=== PATIENT | male | born 1995 | race American Indian/Alaskan Native ===

== ENCOUNTER 2017-03-31 03:05 | Emergency (ER) | payer MEDICAID ==
[2017-03-31] MEDS ORDERED: Oxymetazoline 0.05% Nasal Spray (30 ml) NS STA (03:38)
--- NOTE | 2017-03-31 03:39 | C.PDOC ---
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 Pt reports, fell down on face, noted profuse nasal bleeding. Pt also c/o Right sided chest wall pain. Otherwise , pt denies LOC, syncope, severe headache, visual changes, focal deficits, CP, SOB, dyspnea, abd. pain, N/V, UTI sx, saddle anesthesia, incontinence, denies deformity to B/L UEs and LEs. Ambulate to ED. (Teresa Anderson) - HPI History Per: Patient Onset/Duration Of Symptoms: Sudden Onset <Teresa Anderson - Last Filed: 03/31/17 06:39> <Blaire Chi - Last Filed: 04/01/17 14:23> - HPI Time Seen by Provider: 03/31/17 03:19 Chief Complaint (Nursing): Trauma Past Medical History Reviewed: Historical Data, Nursing Documentation, Vital Signs - Medical History PMH: No Chronic Diseases Surgical History: No Surg Hx Family History: States: No Known Family Hx - Social History Hx Alcohol Use: No Hx Substance Use: No - Immunization History Hx Tetanus Toxoid Vaccination: Yes Hx Influenza Vaccination: Yes Hx Pneumococcal Vaccination: No <Teresa Anderson - Last Filed: 03/31/17 06:39> Review Of Systems Except As Marked, All Systems Reviewed And Found Negative. Eyes: Negative for: Vision Change ENT: Positive for: Nose Discharge, Nose Congestion, Mouth Swelling. Negative for: Ear Discharge Cardiovascular: Negative for: Chest Pain, Edema, Light Headedness Respiratory: Negative for: Cough, Shortness of Breath, Wheezing Gastrointestinal: Negative for: Nausea, Vomiting, Abdominal Pain Musculoskeletal: Negative for: Neck Pain, Back Pain Skin: Positive for: Lesions Neurological: Negative for: Weakness, Numbness, Altered Mental Status, Headache , Dizziness <Teresa Anderson - Last Filed: 03/31/17 06:39> Physical Exam - Physical Exam Appears: Well, No Acute Distress Skin: Normal Color, Warm, Dry Head: Normacephalic, No Swelling, No Laceration Eye(s): bilateral: Normal Inspection, PERRL, EOMI Ear(s): Bilateral: Normal Nose: No Flaring, Epistaxis (B/L trace of bleeding noted. No active epistaxis.) , Deformity (nasal bridge), Tenderness, No Septal Hematoma Oral Mucosa: Moist, No Drooling, No Trismus Tongue: Normal Appearing Lips: Laceration (Right upper inner lip small puncture wound with mild edema.) Teeth: Normal Dentition Throat: Normal, No Erythema, No Exudate, No Drooling Neck: Normal ROM, No Midline Cervical Tenderness, No Paracervical Tenderness, No Step Off Deformity, Supple, Other (mild Rigt sided lateral tenderness. NO midline tenderness,n o skin changes.) Chest: Symmetrical, No Deformity, Tenderness (Right lateral ribcage overlying 7- 10 intercostal spaces. NO palpable deformity.), No Ecchymosis, No Subcutaneous Emphysema Cardiovascular: Rhythm Regular Respiratory: No Decreased Breath Sounds, No Accessory Muscle Use, No Stridor, No Wheezing Gastrointestinal/Abdominal: Soft, No Tenderness, No Distention, No Guarding Back: No Vertebral Tenderness Extremity: Normal ROM, No Pedal Edema, No Deformity Neurological/Psych: Oriented x3, Normal Speech, Normal Motor, Normal Sensation, Normal Reflexes <Teresa Anderson - Last Filed: 03/31/17 06:39> ED Course And Treatment O2 Sat by Pulse Oximetry: 97 Pulse Ox Interpretation: Normal - Other Rad Ribs, righ X-Ray: Interpreted by Me, Viewed By Me Interpretation: (+)scoliosis, no fx C-spine X-Ray: Interpreted by Me, Viewed By Me Interpretation: no acute fx or sublux - CT Scan/US CT maxface Other Rad Studies (CT/US): Radiology Report Reviewed CT/US Interpretation: EXAM: CT Maxillofacial Without Intravenous Contrast. CLINICAL HISTORY: 21 years old, male; Injury or trauma; Fall; Initial encounter ; Blunt trauma (contusions or hematomas);. Cheek bone and forehead and nose and orbit/periorbital and maxilla and lip/oral cavity; Bilateral;. Upper. TECHNIQUE: Axial computed tomography images of the face without intravenous contrast. This CT exam was. performed using one or more of the following dose reduction techniques: automated exposure. control, adjustment of the mA and/or kV according to patient size, and/or use of iterative. reconstruction technique. Coronal and sagittal reformatted images were created and reviewed. COMPARISON: No relevant prior studies available. FINDINGS: Bones/joints: There is slightly displaced nasal fractures. No other acute facial fractures identified. Soft tissues: Unremarkable. Orbits: Unremarkable. Sinuses: There is mucosal thickening of scattered ethmoid air cells bilaterally. Mild mucosal. thickening of the right maxillary sinus. No air-fluid levels. IMPRESSION: 1. There is slightly displaced nasal fractures. 2. No other acute facial fractures identified. Thank you for allowing us to participate in the care of your patient. Dictated and Authenticated by: Boogie Schwab MD. 03/31/2017 6:06 AM Eastern Time ([place] & [place]) <Teresa Anderson - Last Filed: 03/31/17 06:39> Progress Note: Accession No. : [id number]. Patient Name / ID : CORY HOU / [id number]. Exam Date : 03/31/2017 03:37:48 ( Approved ). Study Comment : Sex / Age : M / 21Y. Creator : Ezequiel Colorado MD. Dictator : Ezequiel Colorado MD. Residential Framing Carpenter : Auto Claims Adjuster : Ezequiel Colorado MD. Approver2 : Report Date : 08/2017 09:51:45. My Comment : . Cervical spine three views. History: Injury. Comparison: None available. Findings: Reversal of the normal cervical lordosis. Minimal inferior endplate concavities of the C4 and C5 vertebral bodies. No prevertebral soft tissue swelling. Dens is grossly preserved. At the superior aspect of what appears to be the C7 or T1 left transverse process, there is a small ossific density which may represent a small avulsion injury versus ossification center. Clinical correlation. Mild uncovertebral joint and facet sclerosis. Impression: 1. At the superior aspect of what appears to be the C7 or T1 left transverse process, there is a small ossific density which may represent a small avulsion injury versus ossification center. Clinical correlation. 2. Reversal of the normal cervical lordosis. Minimal inferior endplate concavities of the C4 and C5 vertebral bodies. 3. Mild uncovertebral joint and facet sclerosis. 4. If pain persists, consider MRI. Additional findings as above. Report Date : 03/31/2017 09:46: 37. My Comment : . Chest and right ribs three views. History: Injury. Comparison: None available. Findings: Moderate dextroscoliotic curvature of the mid to lower thoracic spine. Mild venous congestion. No evidence of pneumothorax. Heart size within normal limits. No evidence acute displaced rib fracture. Minimal productive change at the end of the distal right clavicle. Clinical correlation. Impression: Negative acute. If pain persists , consider chest CT. Radiology reviewed. Pt called. Pt notes that he is still sore. Notes that the light bothers him but in the dark he feels better. No headache. No Loc. NO n/v. No change in sensation. No SOB. Pt notes his neck hurts " a little". "I slept on my back last night". Discussed radiology reading. Instructed return to ER if symtpoms persist or worsen. Otherwise outpt follow up in 2-3 days. Pt reiterates understanding. <Blaire Chi - Last Filed: 04/01/17 14:23> Disposition Counseled Patient/Family Regarding: Diagnosis, Need For Followup, Rx Given - Disposition Disposition Time: 06:10 <Teresa Anderson - Last Filed: 03/31/17 06:39> <Blaire Chi - Last Filed: 04/01/17 14:23> - Disposition Referrals: Porfirio Patterson MD [Staff Provider] - Disposition: HOME/ ROUTINE Condition: STABLE Additional Instructions: ICE TO NOSE AREA DO NOT BLOW NASTRIL FOR 1 WEEK AFRIN SINUS TWICE DAILY FOR 3 DAYS NEED FOR NASAL CONGESTION LIGHT DUTY, AVOID PHYSICAL ACTIVITY FOR 1 WEEK FOLLOW UP WITH ENT IN 2-3 DAYS FOR RE-EVALUATION. RETURN TO ED IF ANY WORSENING OR NEW CHANGES. Instructions: Nasal Fracture (ED), Head Injury (ED), Cervical Sprain (ED), Chest Wall Pain (ED), Facial Contusion (ED) - Clinical Impression Clinical Impression: Head injury, Nasal fracture, Chest wall contusion, Cervical strain Critical Care Time
[2017-03-31 07:08] VITALS: BP 118/71; PULSE 75; RESP 18; TEMP 98.5; O2SAT 98
--- NOTE | 2017-03-31 08:04 | CT ---
CT maxillofacial History: Injury. Comparison: None available. Technique: Axial computed tomographic images of the face were performed without intravenous contrast. Subsequently, sagittal and coronal reformatted images were obtained. This CT exam was performed using one or more of the following dose reduction techniques: Automated exposure control, adjustment of the mA and/or kV according to patient size, and/or use of iterative reconstruction technique. Findings: Slightly displaced nasal bone fractures. No other acute facial fractures identified. Visualized soft tissues are preserved. Visualized orbits are preserved. Mucosal thickening of the ethmoid air cells bilaterally. Mild mucosal thickening of the bilateral maxillary sinuses. Mild mucosal thickening of the sphenoid sinus. Prominent thickening of the middle and inferior nasal turbinates. Nasal septal deviation. Impression: Slightly displaced nasal bone fractures. Additional findings as above. These findings were preliminarily reported at 6:06 a.m. on 03/31/[address] Boogie Schwab from [facility].
--- NOTE | 2017-03-31 09:48 | RAD ---
Chest and right ribs three views History: Injury. Comparison: None available. Findings: Moderate dextroscoliotic curvature of the mid to lower thoracic spine. Mild venous congestion. No evidence of pneumothorax. Heart size within normal limits. No evidence acute displaced rib fracture. Minimal productive change at the end of the distal right clavicle. Clinical correlation. Impression: Negative acute. If pain persists, consider chest CT.
--- NOTE | 2017-03-31 09:53 | RAD ---
Cervical spine three views History: Injury. Comparison: None available. Findings: Reversal of the normal cervical lordosis. Minimal inferior endplate concavities of the C4 and C5 vertebral bodies. No prevertebral soft tissue swelling. Dens is grossly preserved. At the superior aspect of what appears to be the C7 or T1 left transverse process, there is a small ossific density which may represent a small avulsion injury versus ossification center. Clinical correlation. Mild uncovertebral joint and facet sclerosis. Impression: 1. At the superior aspect of what appears to be the C7 or T1 left transverse process, there is a small ossific density which may represent a small avulsion injury versus ossification center. Clinical correlation. 2. Reversal of the normal cervical lordosis. Minimal inferior endplate concavities of the C4 and C5 vertebral bodies. 3. Mild uncovertebral joint and facet sclerosis. 4. If pain persists, consider MRI. Additional findings as above.
== END 2017-03-31 06:50 | disposition home or self-care (01) ==
LOC: C.ER 03:05
DX: S02.2XXA Fracture of nasal bones, initial encounter for closed fracture (principal); S20.219A Contusion of unspecified front wall of thorax, initial encounter; S16.1XXA Strain of muscle, fascia and tendon at neck level, initial encounter; W10.9XXA Fall (on) (from) unspecified stairs and steps, initial encounter; Y92.89 Other specified places as the place of occurrence of the external cause